=== PATIENT | male | born 1940 | race Caucasian/White ===

== ENCOUNTER 2016-12-23 11:09 | Emergency (ER) | payer OTHER ==
[~2016-12-23] VITALS: Ht 175.3 cm; Wt 83.1 kg
[2016-12-23] MEDS ORDERED: SODIUM CHLORIDE FLUSH 10ML SYR IVF ONE (12:00)
[2016-12-23 12:06] LABS: BLOOD UREA NITROGEN 17 mg/dL (7-18)
[2016-12-23 13:02] VITALS: BP 149/94
== END 2016-12-23 13:41 | disposition home or self-care (01) ==
LOC: ED 12:02
DX: S06.0X0A Concussion without loss of consciousness, initial encounter (principal); I10 Essential (primary) hypertension; Z88.1 Allergy status to other antibiotic agents; X58.XXXA Exposure to other specified factors, initial encounter; Y99.8 Other external cause status; Y93.89 Activity, other specified; Y92.89 Other specified places as the place of occurrence of the external cause
CPT/HCPCS: 36415; 70450; 80048; 82040; 85025; 93005; 99285

== ENCOUNTER 2017-10-15 08:12 | Emergency (ER) | payer OTHER, MEDICARE ==
[~2017-10-15] VITALS: Ht 175.3 cm; Wt 75.6 kg
[2017-10-15 09:11] LABS: BASOPHILS # (AUTO) 0.04 x10^3/uL (0-0.1); BASOPHILS % (AUTO) 1 % (0-1); EOSINOPHILS % (AUTO) 3 % (1-7); LYMPHOCYTES # (AUTO) 1.02 x10^3/uL (1-3.4); LYMPHOCYTES % (AUTO) 25 % (22-44); MD NO; MEAN CORPUSCULAR HEMOGLOBIN 32.1 pg (27.5-34.5); MEAN CORPUSCULAR HGB CONC 33.7 g/dL (33.2-36.2); MEAN CORPUSCULAR VOLUME 95.4 fL (81-97); MEAN PLATELET VOLUME 10.6 fL (7.4-10.4); MONOCYTES # (AUTO) 0.33 x10^3/uL (0.2-0.8); MONOCYTES % (AUTO) 8 % (2-9); NEUTROPHILS # (AUTO) 2.61 x10^3/uL (1.8-6.8); NEUTROPHILS % (AUTO) 64 % (42-75); PLATELET COUNT 187 x10^3/uL (130-400); RED BLOOD COUNT 4.46 x10^6/uL (4.38-5.82); RED CELL DISTRIBUTION WIDTH 13.9 % (9.4-14.8)
[2017-10-15 09:24] LABS: ALBUMIN 3.5 g/dL (3.4-5.0); ANION GAP 8 mmol/L (5-15); CALCIUM 8.5 mg/dL (8.5-10.1); CHLORIDE 106 mmol/L (98-107); CREATININE 0.96 mg/dL (0.7-1.3)
[2017-10-15] MEDS ORDERED: ASPIRIN 81 MG TABLET CHEW ONE ×2 (11:16→11:21)
[2017-10-15] MEDS ORDERED: ASPIRIN 81 MG TABLET CHEW PO ONE (11:30)
[2017-10-15 11:53] VITALS: BP 181/107
== END 2017-10-15 11:57 | disposition home or self-care (01) ==
LOC: ED 09:19
DX: I63.412 Cerebral infarction due to embolism of left middle cerebral artery (principal); I10 Essential (primary) hypertension
CPT/HCPCS: 36415; 70450; 70551; 72141; 80048; 82040; 85025; 93005; 99285

== ENCOUNTER → 2017-10-15 | Outpatient (CLI) | payer OTHER, MEDICARE | LOC: CVU 13:02 | PROVIDERS: ATTEND Emergency Medicine | DX: I65.23 Occlusion and stenosis of bilateral carotid arteries (principal); I63.9 Cerebral infarction, unspecified; G00-G99 Diseases of the nervous system; I10 Essential (primary) hypertension | CPT/HCPCS: 93306; 93880 ==

== ENCOUNTER → 2018-03-11 | Outpatient (CLI) | payer OTHER ==
[2018-03-11 12:22] LABS: HCT (SEDRATE) 42.9 % (39.2-51.8)
[2018-03-11 12:23] LABS: CHOL/HDL RATIO 2.4; LDL/HDL RATIO 0.9 (0.5-3.0)
[2018-03-12 13:57] LABS: ANA SCREEN NEGATIVE (Negative)
== END | disposition home or self-care (01) ==
LOC: LAB 11:50
PROVIDERS: ATTEND Specialist
DX: G43.009 Migraine without aura, not intractable, without status migrainosus (principal); I67.89 Other cerebrovascular disease
CPT/HCPCS: 36415; 80061; 85651; 86038

== ENCOUNTER 2018-04-02 08:01 | Observation (INO) | payer OTHER, MEDICARE ==
[~2018-04-02] VITALS: Ht 175.3 cm; Wt 69.6 kg
[2018-04-02] MEDS ORDERED: SODIUM CHLORIDE FLUSH 10ML SYR IVF ONE (08:30)
[2018-04-02] MEDS ORDERED: DEXAMETHASONE 4 MG/ML, 1ML IVPush ONE (08:30)
[2018-04-02] MEDS ORDERED: FAMOTIDINE 20 MG/2 ML IVPush ONE (08:30)
[2018-04-02] MEDS ORDERED: DIPHENHYDRAMINE 50 MG/ML, 1ML IVPush ONE (08:30)
[2018-04-02] MEDS ORDERED: FAMOTIDINE 20 MG/2 ML ONE (08:43)
[2018-04-02] MEDS ORDERED: DEXAMETHASONE 4 MG/ML, 5ML ONE (08:43)
[2018-04-02] MEDS ORDERED: DIPHENHYDRAMINE 50 MG/ML, 1ML ONE (08:43)
[2018-04-02 08:58] LABS: BASOPHILS # (AUTO) 0.04 x10^3/uL (0-0.1); BASOPHILS % (AUTO) 1 % (0-1); EOSINOPHILS # (AUTO) 0.07 x10^3/uL (0-0.4); EOSINOPHILS % (AUTO) 2 % (1-7); LYMPHOCYTES # (AUTO) 1.05 x10^3/uL (1-3.4); LYMPHOCYTES % (AUTO) 23 % (22-44); MD NO; MEAN CORPUSCULAR HEMOGLOBIN 32.1 pg (27.5-34.5); MEAN CORPUSCULAR VOLUME 94.6 fL (81-97); MEAN PLATELET VOLUME 10.8 fL (7.4-10.4); MONOCYTES # (AUTO) 0.35 x10^3/uL (0.2-0.8); MONOCYTES % (AUTO) 8 % (2-9); NEUTROPHILS # (AUTO) 2.99 x10^3/uL (1.8-6.8); NEUTROPHILS % (AUTO) 67 % (42-75); PLATELET COUNT 179 x10^3/uL (130-400); RED BLOOD COUNT 4.76 x10^6/uL (4.38-5.82); RED CELL DISTRIBUTION WIDTH 14.1 % (9.4-14.8)
[2018-04-02 09:09] LABS: ALBUMIN 3.7 g/dL (3.4-5.0); ANION GAP 6 mmol/L (5-15); CALCIUM 8.8 mg/dL (8.5-10.1); CHLORIDE 103 mmol/L (98-107)
[2018-04-02 09:13] LABS: ALANINE AMINOTRANSFERASE 34 U/L (12-78); ALKALINE PHOSPHATASE 66 U/L (45-117); BILIRUBIN,TOTAL 1.2 mg/dL (0.2-1.0); CREATININE 1.05 mg/dL (0.7-1.3); TOTAL PROTEIN 6.7 g/dL (6.4-8.2)
[2018-04-02] MEDS ORDERED: NS + 40MEQ KCL 500 ML IV SCH (10:30)
[2018-04-02] MEDS ORDERED: POTASSIUM CHLORIDE 20 MEQ in SODIUM CHLORIDE 0.9% 1,000 ML IV ONE (10:39)
[2018-04-02] MEDS ORDERED: CHLO25TA PO (10:46)
[2018-04-02] MEDS ORDERED: ATOR40TA PO (10:49)
[2018-04-02] MEDS ORDERED: [UNRECOGNIZED DRUG - CODE] TP (10:49)
[2018-04-02] MEDS ORDERED: NS + 20MEQ KCL 1,000 ML IV ONE (10:54)
[2018-04-02] MEDS ORDERED: SODIUM CHLORIDE FLUSH 10ML SYR IVF PRN (11:00)
[2018-04-02] MEDS ORDERED: ENALAPRILAT 1.25 MG/ML, 2ML IVPush PRN (11:30)
[2018-04-02] MEDS ORDERED: BISACODYL 10 MG SUPP PR PRN (11:30)
[2018-04-02] MEDS ORDERED: ACETAMINOPHEN 325 MG TABLET PO PRN (11:30)
[2018-04-02] MEDS ORDERED: ONDANSETRON 2MG/ML, 2ML IVPush PRN (11:30)
[2018-04-02] MEDS ORDERED: LABETALOL 5MG/ML, 20ML IVPush PRN (11:30)
[2018-04-02] MEDS ORDERED: UREA TP SCH (11:30)
[2018-04-02] MEDS ORDERED: DOCUSATE 100 MG CAPSULE PO PRN (11:30)
[2018-04-02] MEDS: DEXAMETHASONE 4 MG/ML, 1ML IVPush SCH ×3 (13:11→23:39)
[2018-04-02 13:46] VITALS: BP 146/94
[2018-04-02] MEDS ORDERED: KETOROLAC 30 MG/1 ML IVPush ONE (15:00)
[2018-04-02] MEDS: ASA/APAP/ CAFFEINE TABLET PO PRN (18:44)
[2018-04-02] MEDS ORDERED: ATORVASTATIN 40 MG TABLET PO SCH (21:00)
[2018-04-02 21:07] VITALS: BP 137/88
[2018-04-02] MEDS ORDERED: OMNIPAQUE 350 MG/ML, 100ML BOTTLE ONE (21:33)
[2018-04-03 02:19] VITALS: BP 149/88
[2018-04-03 05:35] LABS: BASOPHILS # (AUTO) 0.01 x10^3/uL (0-0.1); BASOPHILS % (AUTO) 0 % (0-1); EOSINOPHILS % (AUTO) 0 % (1-7); LYMPHOCYTES # (AUTO) 1.29 x10^3/uL (1-3.4); LYMPHOCYTES % (AUTO) 14 % (22-44); MD NO; MEAN CORPUSCULAR HEMOGLOBIN 32.6 pg (27.5-34.5); MEAN CORPUSCULAR HGB CONC 34.5 g/dL (33.2-36.2); MEAN CORPUSCULAR VOLUME 94.3 fL (81-97); MEAN PLATELET VOLUME 10.8 fL (7.4-10.4); MONOCYTES # (AUTO) 0.14 x10^3/uL (0.2-0.8); MONOCYTES % (AUTO) 2 % (2-9); NEUTROPHILS # (AUTO) 7.54 x10^3/uL (1.8-6.8); NEUTROPHILS % (AUTO) 84 % (42-75); PLATELET COUNT 189 x10^3/uL (130-400)
[2018-04-03 05:49] LABS: CHLORIDE 107 mmol/L (98-107)
[2018-04-03 05:56] LABS: ANION GAP 8 mmol/L (5-15); CREATININE 0.91 mg/dL (0.7-1.3)
[2018-04-03] MEDS: DEXAMETHASONE 4 MG/ML, 1ML IVPush SCH (06:23)
[2018-04-03] MEDS: ASA/APAP/ CAFFEINE TABLET PO PRN (06:32)
[2018-04-03 07:42] VITALS: BP 161/96
[2018-04-03] MEDS ORDERED: SENNA/DOCUSATE TABLET PO SCH (09:00)
[2018-04-03] MEDS ORDERED: CHLORTHALIDONE 12.5 MG PO SCH (09:00)
[2018-04-03] MEDS ORDERED: GADOBUTROL 7.5 MMOL/7.5 ML PFS ONE (10:53)
[2018-04-03] MEDS ORDERED: CHLORTHALIDONE 25 MG TABLET PO SCH (12:30)
[2018-04-03 13:30] VITALS: BP 148/89
== END 2018-04-03 17:00 | disposition home or self-care (01) ==
LOC: ED 11:09 → EDIP 11:10 → ED 11:18 → 4WST 12:35 → DCLOUNGE 04-03 16:47
PROVIDERS: ADMIT Internal Medicine; ATTEND Internal Medicine
DX: T78.3XXA Angioneurotic edema, initial encounter (principal); K14.9 Disease of tongue, unspecified; E87.6 Hypokalemia; R73.9 Hyperglycemia, unspecified; R74.0 Nonspecific elevation of levels of transaminase and lactic acid dehydrogenase [LDH]; E78.5 Hyperlipidemia, unspecified; I10 Essential (primary) hypertension; K76.89 Other specified diseases of liver; Z86.73 Personal history of transient ischemic attack (TIA), and cerebral infarction without residual deficits; Z90.49 Acquired absence of other specified parts of digestive tract
CPT/HCPCS: 36415; 70491; 70553; 71260; 74177; 80048; 80053; 83735; 85025; 93005; 96365; 96366; 96375; 96376; 99285; A9585; G0378; J1100; J1200; J1885; J3480; J7030; Q9967; S0028

== ENCOUNTER 2019-01-14 09:31 | Outpatient (CLI) | payer OTHER ==
[~2019-01-14 09:31] MED LIST: ATOR40TA PO; CHLO25TA PO; [UNRECOGNIZED DRUG - CODE] TP
== END 2019-01-14 23:59 | disposition home or self-care (01) ==
LOC: PETCFH 09:31
PROVIDERS: ATTEND Internal Medicine Hematology & Oncology
DX: D21.0 Benign neoplasm of connective and other soft tissue of head, face and neck (principal); I10 Essential (primary) hypertension
CPT/HCPCS: 78815; A9552

== ENCOUNTER → 2019-07-14 | Outpatient (CLI) | payer OTHER | END | disposition home or self-care (01) | LOC: PETCFH 10:57 | PROVIDERS: ATTEND Internal Medicine Hematology & Oncology | DX: C02.9 Malignant neoplasm of tongue, unspecified (principal); J98.11 Atelectasis | CPT/HCPCS: 78815; A9552 ==